=== PATIENT | male | born 1985 | race Caucasian/White ===

== ENCOUNTER 2021-01-08 08:23 | Emergency (ER) | payer BC, SELFPAY ==
[2021-01-08 08:24] VITALS: BP 157/110; PULSE 93; RESP 18; TEMP 36.8; O2SAT 98; BMI 24.4
--- NOTE | 2021-01-08 09:00 | [facility].EDBACK ---
ED Disposition Clinical Impression: Thoracic myofascial strain Qualifiers: Encounter type: initial encounter Qualified Code(s): S29.019A - Strain of muscle and tendon of unspecified wall of thorax, initial encounter Disposition: Home, Self-Care Condition on Discharge: Good Instructions: DI for Low Back Pain Prescriptions: Ibuprofen [Ibuprofen 800mg Tablet] 800 mg PO TIDP PRN #20 tab PRN Reason: Moderate Pain [facility] methocarbamoL [Methocarbamol] 750 mg PO QID 7 Days #28 tab Transmission Status: [phone] Referrals: Provider,Referral, [Primary Care Provider] - - Critical Care Critical Care Time: No Attestation: On 01/08/21, the high probability of a clinically significant, sudden or life threatening deterioration of the following system(s) required my full and direct attention, intervention and personal management. The time I documented below is in addition to time spent performing reported procedures but includes the following listed in this critical care notation. Medical Decision Making - Medical Records Medical records reviewed: Yes: I reviewed the patient's medical records. - Tay Inquiry Pt receiving controlled substance: No Vital Signs: 01/08/21 08:24 Temperature 98.2 F Temperature Source Oral Pulse Rate [Left Radial] 93 H Respiratory Rate 18 Blood Pressure [Right Arm] 157/110 H Blood Pressure Mean [Right Arm] 125 Blood Pressure Source [Right Arm] Automatic Cuff Blood Pressure Position [Right Arm] Sitting 02 Sat by Pulse Oximetry 98 Oxygen Delivery Method Room Air - Lab Data Lab Results 01/08/21 09:30: Urine Color Yellow, Urine Appearance Clear, Urine pH 6.5, Ur Specific Carpio 1.020, Urine Protein Negative, Urine Glucose (UA) Negative, Urine Ketones Negative, Urine Blood Negative, Urine Nitrate Negative, Urine Bilirubin Negative, Urine Urobilinogen 0.2, Ur Leukocyte Esterase Negative Orders (Tests/Meds): ED MEDICATIONS Discontinued Medications Generic Name Dose Route Start Last Admin Trade Name Freq PRN Reason Stop Dose Admin Ketorolac Tromethamine 30 mg 01/08/21 08:28 01/08/21 08:44 Ketorolac 30mg/Ml Vial IM 01/08/21 08:29 30 mg ONCE ONE Administration Methocarbamol 1,000 mg 01/08/21 08:28 01/08/21 08:44 Methocarbamol 500mg Tablet PO 01/08/21 08:29 1,000 mg ONCE STA Administration ORDERS Category Date Time Status Urinalysis and Microscopic Stat Lab 01/08/21 09:30 Results - Reevaluation(s) Time: 10:03 Reevaluation #1: On reevaluation, patient is feeling much better. Repeat exam is improved. Patient's range of motion is also improved. Urinalysis was negative for any hematuria. Findings consistent with muscle spasm and thoracic sprain. Patient will follow up with PCP in 48 hours. Given strict return precautions. Verbalized understanding. Medical Decision Narrative: 35-year-old male presenting with some left lateral back pain. This appears to be more musculoskeletal in nature. He has no abdominal tenderness. Is reproducible to palpation on examination. No focal neurologic deficit. Work-up initiated. Patient treated symptomatically. Back Pain HPI - General Chief Complaint: Back Pain/Injury Stated Complaint: back back Time Seen by Provider: 01/08/21 08:30 Mode of Arrival: Ambulatory Limitations: No Limitations Description of Symptoms (Recalled from ER Triage Doc. by RN): c/o middle back pain that runs to the lower back, started Friday, denies any injury - History of Present Illness HPI Narrative: Is a 35-year-old male presented to the emergency department with some mid left-sided back pain. Patient has had the symptoms for the last 2 days. He is unsure of any injuries, however he woke up and felt like his back was a little stiff. It is progressed to some pain. Located in his left lateral thoracic region. States that it radiates down to hi
[2021-01-08 09:36] LABS: Microscopic, Urine URINE MICROSCOPIC (MICROSCOPIC)
[2021-01-08 09:41] LABS: Appearance,Urine CLEAR (Clear); Bilirubin,Urine Negative (Negative); Blood, Urine Negative (Negative); Color,Urine YELLOW (Yellow); Glucose,Urine (UA) Negative (Negative); Ketones,Urine Negative (Negative); Leukocyte Esterase,Urine Negative (Negative); Nitrate,Urine Negative (Negative); PH,Urine 6.5 (5.0-8.5); Protein,Urine Negative (Negative); Urobilinogen,Urine 0.2 EU/dl (0.2)
[2021-01-08 10:54] VITALS: BP 128/96; PULSE 76; RESP 17; TEMP 36.8; O2SAT 97
== END 2021-01-08 10:56 | disposition home or self-care (01) ==
PROVIDERS: Emergency Provider Emergency Medicine
DX: S29.019A Strain of muscle and tendon of unspecified wall of thorax, initial encounter (principal)
CPT/HCPCS: 81001; 96372; 99281